=== PATIENT | female | born 1965 | race Caucasian/White ===

== ENCOUNTER → 2017-06-12 | Outpatient (CLI) | payer BC ==
[2017-06-12 13:19] LABS: ALT 34 U/L (9-52); AST 25 U/L (14-36); Alkaline Phosphatase 97 U/L (38-126); Anion Gap 12 mmol/L; Blood Urea Nitrogen 11 mg/dL (7-17); Calcium 9.5 mg/dL (8.4-10.2); Carbon Dioxide 23 mmol/L (22-30); Chloride 106 mmol/L (98-107); Glucose 92 mg/dL (74-99); Non-African American GFR(MDRD) >60 (>60 ml/min/1.73 sqM); Potassium 4.2 mmol/L (3.5-5.1); Sodium 141 mmol/L (137-145); Total Bilirubin 0.4 mg/dL (0.2-1.3)
== END | disposition home or self-care (01) ==
LOC: LABWHC1 12:17
PROVIDERS: ATTEND Internal Medicine Interventional Cardiology
DX: I48.1 Persistent atrial fibrillation (principal)
CPT/HCPCS: 36415; 80053; 84443

== ENCOUNTER → 2017-08-20 | Outpatient (CLI) | payer BC ==
--- NOTE | 2017-08-20 17:52 | CT ---
EXAMINATION TYPE: CT angio chest DATE OF EXAM: 08/20/2017 5:36 PM COMPARISON: NONE HISTORY: History of afib. No complaints at time of scan CT DLP: 858 mGycm Automated exposure control for dose reduction was used. CONTRAST: CTA scan of the thorax is performed with IV Contrast, patient injected with 100 mL of Omnipaque 350, pulmonary embolism protocol. There are 3-D post processed images.. FINDINGS: The lungs are clear of consolidation. There is no pleural effusion. There is no evidence of a pulmona ry mass. There is normal contrast opacification of the pulmonary arteries. I see no filling defect. There is n o mediastinal adenopathy. There are no hilar masses. Heart size is normal. There is no pericardial ef fusion. There is spurring in the thoracic spine. IMPRESSION: NEGATIVE CT ANGIOGRAM OF THE CHEST. NO EVIDENCE OF PULMONARY EMBOLISM.
== END | disposition home or self-care (01) ==
LOC: RADCTMAIN 16:53
PROVIDERS: ATTEND Internal Medicine Clinical Cardiac Electrophysiology
DX: I28.8 Other diseases of pulmonary vessels (principal)
CPT/HCPCS: 71275; Q9967

== ENCOUNTER → 2018-07-27 | Outpatient (CLI) | payer BC ==
[2018-07-27 12:23] LABS: HCT 40.3 % (34.0-46.0); HGB 13.3 gm/dL (11.4-16.0); MCH 29.4 pg (25.0-35.0); MCHC 32.9 g/dL (31.0-37.0); MCV 89.4 fL (80.0-100.0); Mean Platelet Volume 6.6; Platelet Count 370 k/uL (150-450); RBC 4.51 m/uL (3.80-5.40); RDW 13.5 % (11.5-15.5); WBC 10.2 k/uL (3.8-10.6)
[2018-07-27 12:52] LABS: Anion Gap 9 mmol/L; Blood Urea Nitrogen 13 mg/dL (7-17); Carbon Dioxide 24 mmol/L (22-30); Chloride 107 mmol/L (98-107); Potassium 4.5 mmol/L (3.5-5.1); Sodium 140 mmol/L (137-145)
== END | disposition home or self-care (01) ==
LOC: LABPAT 11:06
PROVIDERS: ATTEND Internal Medicine Interventional Cardiology
DX: Z01.812 Encounter for preprocedural laboratory examination (principal); I48.1 Persistent atrial fibrillation; R07.9 Chest pain, unspecified
CPT/HCPCS: 36415; 80051; 82565; 84520; 85027

== ENCOUNTER 2018-08-03 10:44 | Day surgery (SDC) | payer BC ==
[2018-07-28 11:53] VITALS: BMI 31.8
[~2018-08-03 10:44] MED LIST: ALPRAZolam 0.25 MG TAB PO PRN; ALPRAZolam 0.5 MG TAB PO PRN; ASPIRIN 325 MG TAB PO STA; ATORVASTATIN 80 MG TAB PO STA; NITROGLYCERIN SL TABS 0.4 MG TAB SUBLINGUAL PRN; SODIUM CHLORIDE 0.9% 1,000 ML in EMPTY BAG 1 BAG IV ONE
[2018-08-03] MEDS ORDERED: LIDOCAINE 1% INJ 10MG/ML (20 ML MDV) ONE (11:27)
[2018-08-03 11:43] VITALS: RESP 16; TEMP 98.3
[2018-08-03] MEDS ORDERED: fentaNYL (PF) 50 MCG/ML 2 ML AMP IV ONE (12:33)
[2018-08-03] MEDS ORDERED: LIDOCAINE 2% SYG (PF) 100 MG/5 ML MISCELLANE ONE (12:38)
[2018-08-03] MEDS ORDERED: MIDAZOLAM 2 MG/2 ML VIAL IV ONE (12:39)
[2018-08-03] MEDS: VERAPAMIL SYRINGE (5 MG/10 ML) INTRAARTER ONE ×2 (12:42→12:49)
[2018-08-03] MEDS ORDERED: METOPROLOL TARTRATE 5 MG/5 ML VIAL IVP ONE (12:44)
[2018-08-03] MEDS ORDERED: IOPAMIDOL-370 125ML BTL INJ ONE ×2 (12:48)
[2018-08-03] MEDS ORDERED: HEPARIN SODIUM 1,000 UN/ML (10ML VL) IV ONE (12:48)
[2018-08-03] MEDS ORDERED: RX INFO: IV CONTRAST WAS GIVEN 1 EACH MISC MISCELLANE PRN (13:05)
[2018-08-03] MEDS ORDERED: SODIUM CHLORIDE 0.9% 1,000 ML IV SCH (13:15)
[2018-08-03] MEDS ORDERED: FLECAINIDE 50 MG TAB PO SCH (13:45)
--- NOTE | 2018-08-03 16:19 | CC ---
CARDIAC CATHETERIZATION REPORT Mrs. Aragon is a 52-year-old female with a history of paroxysmal fibrillation, status post ablation, who recently has been in persistent atrial fibrillation, has been complaining of recurrent episode of chest discomfort. At times exertional in pattern. Because of her persistent symptoms and her history of arrhythmia, recommendation made regarding cardiac catheterization. The procedures, as well as risks and complications were discussed with the patient who is in full understanding and agreement. 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 Using Xylocaine anesthesia and Seldinger technique, a 6-Martiniquais sheath was introduced in the right radial artery. Selective right and left angiography performed using 5-Martiniquais 3 and half bend right and left Rashida catheter. Multiple views of the coronary artery including hemiaxial views were obtained. Following that, a 5-Martiniquais tight pigtail catheter was introduced into the left ventricle and a 30 degree TAYLOR view of the left ventricle was obtained. Following that, the catheter and sheath were removed. Hemostasis was obtained with deployment of a TR band. There was no immediate complication. Patient returned to her room in stable condition. Of note, the patient received 4500 units of intravenous heparin as well as intra-arterial verapamil. FINDINGS: Left main: This is a large-sized vessel bifurcating into left circumflex, left anterior descending artery, left main coronary artery has no evidence of high-grade stenosis. Left anterior descending artery: This is a large-sized vessel reaching toward the apex with a wraparound apex segment. The left anterior descending coronary artery and its branches have no evidence of obstructive coronary artery disease. Left circumflex: The left circumflex is a nondominant vessel giving rise to 2 obtuse marginal branches. The first one is very proximal and has no evidence of high-grade stenosis. Right coronary artery: This is a large dominant vessel bifurcating distally into PDA and posterolateral segment and its branches. The right coronary artery as well as branches have no evidence of obstructive coronary disease. Left ventriculogram: Left ventriculogram is performed in 30-degree TAYLOR view and revealed normal left ventricular size and systolic function. Ejection fraction is 60%. There was no significant mitral regurgitation. HEMODYNAMICS: There was no gradient across the aortic valve. The left ventricle end-diastolic pressure was 14-16 mmHg. CONCLUSION: 1. Normal coronary arteries. 2. Normal left ventricular size and systolic function. RECOMMENDATIONS: In view of findings and anatomy, I recommend to initiate treatment with flecainide in addition to her medication. Depending on her progress, further recommendations will be made. DURATION OF PROCEDURE: 20 minutes. MMODL / IJN: [id number] /
[2018-08-03 17:00] VITALS: BP 118/72; PULSE 71
[2018-08-03] MEDS ORDERED: ACETAMINOPHEN TAB 500 MG TAB PO ONE (17:29)
[2018-08-03] MEDS ORDERED: DILTIAZEM HCL 120 MG PO SCH (21:00)
[2018-08-03] MEDS ORDERED: NON-FORMULARY DRUG (Calcium Carbonate [Calcium] 600 MG) PO SCH (21:00)
[2018-08-04] MEDS ORDERED: NON-FORMULARY DRUG (Omeprazole [Omeprazole] 20 MG) PO SCH (09:00)
[2018-08-04] MEDS ORDERED: ASPIRIN 325 MG TAB PO SCH (09:00)
[2018-08-04] MEDS ORDERED: NON-FORMULARY DRUG (Omega-3 Fatty Acids [Omega-3] 1,000 MG) PO SCH (09:00)
[2018-08-04] MEDS ORDERED: LEVOCARNITINE 500 MG PO SCH (09:00)
[2018-08-04] MEDS ORDERED: NON-FORMULARY DRUG (Cinnamon Bark [Cinnamon] 500 MG) PO SCH (09:00)
[2018-08-04] MEDS ORDERED: MULTIVITAMINS, THERA 1 EACH TAB PO SCH (09:00)
[2018-08-04] MEDS ORDERED: NON-FORMULARY DRUG (Ascorbic Acid [Vitamin C] 1,000 MG) PO SCH (09:00)
[2018-08-04] MEDS ORDERED: GARLIC PO SCH (09:00)
== END 2018-08-03 17:54 | disposition home or self-care (01) ==
LOC: CATHCVL 10:44
PROVIDERS: ATTEND Internal Medicine Interventional Cardiology
DX: I20.0 Unstable angina (principal); Z82.49 Family history of ischemic heart disease and other diseases of the circulatory system; Z79.82 Long term (current) use of aspirin; Z79.899 Other long term (current) drug therapy; Z88.5 Allergy status to narcotic agent; Z88.0 Allergy status to penicillin; Z91.040 Latex allergy status
CPT/HCPCS: 93458; 81025; C1894; C1769; J2250; J2001; J3010; J1644; Q9967

== ENCOUNTER → 2022-05-23 | Outpatient (CLI) | payer BC ==
--- NOTE | 2022-05-26 09:18 | MM ---
Reason for Exam: Screening (asymptomatic). Patient History: Menarche at age 15. First Full-Term at age 30. Last menstrual period: Risk Values: Lizette 5 year model risk: 1.2%. NCI Lifetime model risk: 8.3%. Prior Study Comparison: No prior studies available for comparison. Tissue Density: There are scattered fibroglandular densities. Findings: Analyzed By CAD. There is no suspicious group of microcalcifications or new suspicious mass in either breast. Overall Assessment: Negative, BI-RAD 1 Management: Screening Mammogram of both breasts in 1 year. A clinical breast exam by your physician is recommended on an annual basis and results should be correlated with mammographic findings. Electronically signed and approved by: Moises Batista D.O.
== END | disposition home or self-care (01) ==
LOC: RADMAMWWP 15:09
PROVIDERS: ATTEND Family Medicine
DX: Z12.31 Encounter for screening mammogram for malignant neoplasm of breast (principal)
CPT/HCPCS: 77063; 77067

== ENCOUNTER → 2023-08-07 | Day surgery (SDC) | payer BC ==
[~2023-08-07] MED LIST changes: -ALPRAZolam 0.25 MG TAB PO PRN; -ALPRAZolam 0.5 MG TAB PO PRN; -ASPIRIN 325 MG TAB PO STA; -ATORVASTATIN 80 MG TAB PO STA; +LIDOCAINE 1% INJ 10MG/ML (20 ML MDV) ONE; -NITROGLYCERIN SL TABS 0.4 MG TAB SUBLINGUAL PRN; +PROPOFOL 10 MG/ML 20 ML VIAL IV ONE; -SODIUM CHLORIDE 0.9% 1,000 ML in EMPTY BAG 1 BAG IV ONE
[2023-08-07] MEDS: LACTATED RINGERS 1,000 ML IV SCH ×2 (13:09→13:40)
[2023-08-07 13:17] VITALS: TEMP 97.5
--- NOTE | 2023-08-07 13:50 | P.PCN ---
Date of Procedure: 08/07/23 Procedure(s) Performed: BRIEF HISTORY: Patient is a 57-year-old, pleasant, white female scheduled for an upper endoscopy as a part of evaluation of long-standing history of GERD. She is been on omeprazole for many years and recently was changed to Protonix 40 mg daily and has been taking it once a week. She scheduled for an upper endoscopy to rule out complicated reflux disease. PROCEDURE PERFORMED: Esophagogastroduodenoscopy with biopsy . PREOPERATIVE DIAGNOSIS: Long-standing history of GERD. IV sedation per anesthesia. PROCEDURE: After informed consent was obtained, the patient was brought into the endoscopy unit. IV sedation was administered by Anesthesia under continuous monitoring. Initially the Olympus GIF-140 video endoscope was inserted into the mouth. Esophagus intubated without any difficulty. It was gradually advanced into the stomach and duodenum and carefully examined. The bulb and the second part of the duodenum appeared normal. The scope at this time was withdrawn to the stomach, adequately insufflated with air, and upon careful examination, mucosa of the antrum, had mild patchy areas of erythema consistent with gastritis and biopsies were done from this area. Mucosabody, cardia and the fundus appeared normal. The scope was then withdrawn into the esophagus. The GE junction was located at 39 cm from the incisors. There was one small scybalous erosion at the GE junction consistent with LA grade a reflux esophagitis. Rest of esophagus appeared normal rosions or ulcerations seen and the patient tolerated the procedure well. IMPRESSION: 1. Mild antral gastritis 2. One superficial erosion at the GE junction consistent with LA grade a reflux esophagitis RECOMMENDATIONS: The findings of this examination were discussed with the patient as well as a family. She was advised to follow with the biopsy results. Continue with Protonix 40 mg daily and follow antireflux measures
[2023-08-07 13:59] VITALS: RESP 16
[2023-08-07 14:20] VITALS: BP 111/80; PULSE 78
== END ==
LOC: ORWHC2ENDO 11:06
PROVIDERS: ATTEND Internal Medicine Gastroenterology
DX: K29.50 Unspecified chronic gastritis without bleeding (principal); K22.10 Ulcer of esophagus without bleeding; K21.9 Gastro-esophageal reflux disease without esophagitis; I48.91 Unspecified atrial fibrillation; Z79.82 Long term (current) use of aspirin; Z88.5 Allergy status to narcotic agent; Z88.0 Allergy status to penicillin; Z91.040 Latex allergy status; Z87.891 Personal history of nicotine dependence; Z79.899 Other long term (current) drug therapy
CPT/HCPCS: 43239; J2001; J2704; 88305

== ENCOUNTER → 2024-06-07 | Outpatient (CLI) | payer BC ==
--- NOTE | 2024-06-14 11:49 | MM ---
Reason for Exam: Screening (asymptomatic). Last mammogram was performed 2 year(s) and 0 month(s) ago. Patient History: Menarche at age 15. First Full-Term at age 30. Postmenopausal. Patient has history of breast feeding. Risk Values: Lizette 5 year model risk: 1.3%. NCI Lifetime model risk: 8.0%. Prior Study Comparison: 05/23/2022 Bilateral MG 3D screening mammo w/cad, [facility]. Tissue Density: The breasts are almost entirely fatty. Findings: Analyzed By CAD. Right breast: There is no suspicious group of microcalcifications or new suspicious mass. Left breast: There is no suspicious group of microcalcifications or new suspicious mass. Overall Assessment: Negative, BI-RAD 1 Management: Screening Mammogram of both breasts in [address] [facility] will attempt to contact patient to return for supplemental views and ultrasound if indicated. Patient should continue monthly self-breast exams. A clinical breast exam by your physician is recommended on an annual basis. This exam should not preclude additional follow-up of suspicious palpable abnormalities. Note on Lizette scores and lifetime risk: 1. A Lizette score greater than 3% is considered moderate risk. If this is the case, consider specialist referral to assess eligibility for a risk reducing agent. 2. If overall lifetime risk for the development of breast cancer is 20% or higher, the patient may qualify for future screening with alternating mammogram and breast MRI. Electronically signed and approved by: Azar Camarena DO
== END | disposition home or self-care (01) ==
LOC: RADMAMWWP 07:07
PROVIDERS: ATTEND Family Medicine
DX: Z12.31 Encounter for screening mammogram for malignant neoplasm of breast
CPT/HCPCS: 77063; 77067